=== PATIENT | female | born 1930 | race Hispanic/Latino ===

== ENCOUNTER 2017-11-12 13:15 | Emergency (ER) | payer MEDICARE ==
[2017-11-12 13:15] VITALS: BMI 21.2
--- NOTE | 2017-11-12 13:42 | ED PDOC ---
Syncope/Near Syncope/Dizziness Time Seen by Provider: 11/12/17 13:25 Chief Complaint (Nursing): Weakness/Neurological Deficit History Per: Patient Onset/Duration Of Symptoms: Days (2) Current Symptoms Are (Timing): Intermittent Episodes Associated Symptoms Preceding Syncopal Episode: No Predromal Symptoms (Sudden Onset) Seizure Or Post-ictal Symptoms: None Fall Associated With With Symptoms: No Additional Complaint(s): Lightheadedness x 2 days. Denies dizziness, chest pain or palpitations. No LOC. Denies abd pain nausea or vomiting. Good apatite Past Medical History Vital Signs: Last Vital Signs Temp 98.0 F 11/12/17 13:17 Pulse 79 11/12/17 13:17 Resp 20 11/12/17 13:17 BP 188/101 H 11/12/17 13:17 Pulse Ox 100 11/12/17 13:17 - Medical History PMH: Anemia, Anxiety, Arthritis, CAD, HTN, Hypothyroidism, Osteoporosis, Pulmonary Embolism Denies: Chronic Kidney Disease - Surgical History Surgical History: Appendectomy (8yrs old), Cholecystectomy, Coronary Stent (2006) - Family History Family History: States: Unknown Family Hx - Home Medications Home Medications: Ambulatory Orders Medication Instructions Recorded ALPRAZolam [Xanax] 1 tab PO DAILY PRN 09/30/15 Biotin [Meribin] 1 tab PO DAILY 09/30/15 Cholecalciferol [Vitamin D 1000 IU] 1 tab PO DAILY 09/30/15 Cyanocobalamin (Vitamin B-12) 1 1000 IM Q30D 09/30/15 [Cyanocobalamin Injection] Isosorbide Mononitrate ER [Imdur 1 tab PO DAILY 09/30/15 ER] Montelukast [Singulair] 1 tab PO DAILY PRN 09/30/15 Nitroglycerin [Nitrostat] 1 tab SL PRN PRN 09/30/15 Oxybutynin XL [Ditropan XL] 1 tab PO DAILY 09/30/15 Valsartan [Diovan] 1 tab PO DAILY 09/30/15 Docusate Sodium [Stool Softener] 1 tab PO DAILY 03/27/16 Digoxin [Lanoxin] 0.125 mg PO DAILY 05/15/17 Ferrous Sulfate [Feosol] 325 mg PO BID 05/15/17 Esomeprazole Magnesium [Nexium] 40 mg PO DAILY 08/07/17 Gabapentin [Neurontin] 100 mg PO TID 08/07/17 - Allergies Allergies/Adverse Reactions: Allergies Allergy/AdvReac Type Severity Reaction Status Date / Time Penicillins Allergy SWELLING Verified 11/12/17 13:17 Sulfa (Sulfonamide Allergy SWELLING Verified 11/12/17 13:17 Antibiotics) Review of Systems ROS Statement: Except As Marked, All Systems Reviewed And Found Negative Physical Exam - Reviewed Nursing Documentation Reviewed: Yes Vital Signs Reviewed: Yes - Physical Exam Appears: Positive for: Non-toxic, No Acute Distress Head Exam: Positive for: ATRAUMATIC, NORMAL INSPECTION, NORMOCEPHALIC Skin: Positive for: Normal Color, Warm, DRY Eye Exam: Positive for: EOMI, Normal appearance, PERRL ENT: Positive for: Normal ENT Inspection Neck: Positive for: Normal, Painless ROM Cardiovascular/Chest: Positive for: Regular Rate, Rhythm Respiratory: Positive for: CNT, Normal Breath Sounds Gastrointestinal/Abdominal: Positive for: Normal Exam, Soft Back: Positive for: Normal Inspection Extremity: Positive for: Normal ROM Neurologic/Psych: Positive for: Alert, Oriented - Laboratory Results Result Diagrams: 11/12/17 14:36 11/12/17 14:36 - ECG O2 Sat by Pulse Oximetry: 100 Medical Decision Making Medical Decision Making: Discussed with Dr. Polo Young. Will see pt in office for f/u Disposition - Clinical Impression Clinical Impression: HTN (hypertension), Anxiety - Patient ED Disposition Is Patient to be Admitted: No Counseled Patient/Family Regarding: Studies Performed, Diagnosis, Need For Followup, Rx Given - Disposition Referrals: Brady Young MD [Staff Provider] - Disposition: Routine/Home Disposition Time: 15:35 Condition: FAIR Instructions: High Blood Pressure in Adults, Anxiety, Adult (DC) Forms: [employer]amp (Chilean)
[2017-11-12 14:38] LABS: BASO % 0.3 % (0.0-2.0); EOS % 0.5 % (0.0-4.0); HEMOGLOBIN 12.1 g/dL (12.0-16.0); LYMPH # 0.9 K/uL (1.0-4.3); LYMPH % 10.4 % (20.0-40.0); MEAN CELL VOLUME 89.8 fl (81.0-99.0); MEAN CORPUSCULAR HEMOGLOBIN 30.1 pg (27.0-31.0); MEAN CORPUSCULAR HGB CONC 33.5 g/dL (33.0-37.0); MEAN PLATELET VOLUME 8.3 fl (7.2-11.7); MONO # 0.5 K/uL (0.0-0.8); MONO % 5.3 % (0.0-10.0); NEUT # 7.6 K/uL (1.8-7.0); NEUT % 83.5 % (50.0-75.0); NRBC % 0.1 % (0.0-0.0); RBC 4.04 Mil/uL (3.80-5.20); RED CELL DISTRIBUTION WIDTH 13.1 % (11.5-14.5); WHITE BLOOD COUNT 9.1 K/uL (4.8-10.8)
[2017-11-12 14:54] LABS: ALBUMIN 3.7 g/dL (3.5-5.0); ALT/SGPT 30 U/L (9-52); AST/SGOT 36 U/L (14-36); BLOOD UREA NITROGEN 22 mg/dl (7-17); CALCIUM 8.9 mg/dL (8.4-10.2); GFR AFRICAN-AMERICAN > 60; GFR NON-AFRICAN AMERICAN > 60
[2017-11-12 16:59] VITALS: BP 143/82; PULSE 88; RESP 15; TEMP 98.1; O2SAT 98
--- NOTE | 2017-11-13 13:32 | CARD ---
APPROVED REPORT Date of service: 11/12/2017 EKG Measurement Heart [id number] <Conclusion> Normal sinus rhythm Nonspecific ST abnormality Abnormal ECG
== END 2017-11-12 16:58 | disposition home or self-care (01) ==
LOC: H.ER 13:15
DX: R55 Syncope and collapse (principal); I10 Essential (primary) hypertension; F41.9 Anxiety disorder, unspecified; E03.9 Hypothyroidism, unspecified; Z86.711 Personal history of pulmonary embolism; Z88.0 Allergy status to penicillin; Z95.5 Presence of coronary angioplasty implant and graft

== ENCOUNTER 2017-11-18 12:08 | Emergency (ER) | payer MEDICARE ==
[2017-11-18 12:09] VITALS: BMI 21.2
--- NOTE | 2017-11-18 13:14 | ED PDOC ---
HPI: Hypertension/Hypotension Time Seen by Provider: 11/18/17 12:33 Chief Complaint (Nursing): High Blood Pressure Chief Complaint (Provider): High blood pressure History Per: Patient History/Exam Limitations: no limitations Onset/Duration Of Symptoms: Days Current Symptoms Are (Timing): Still Present Associated Symptoms: denies: Chest Pain, Dyspnea, Blurred Vision, Headache Additional Complaint(s): Dayanara Barahona is an 87 year old female, with a past medical history of HTN, asthma, CAD, gastritis, CHF and anemia, who was brought to the emergency department via EMS for high blood pressure onset today. Patient states she was in the ED x6 days ago for the same problem. Patient reports a lot of stress in her life recently and over the weekend she fell twice after she tripped over a wire. Patient states she was in physical therapy and wasn't feeling right. They examined her blood pressure and noticed it was high so they called the ambulance. Patient is currently taking Oxycodon for chronic pain, and Xanax. She denies any chest pain, shortness of breath or headache. No further medical complaints. PMD: None. Sees Dr. Blake for gastritis Helpdesk Specialist: Dr. Polo Young. Past Medical History Reviewed: Historical Data, Nursing Documentation, Vital Signs Vital Signs: Last Vital Signs Temp 98.8 F 11/18/17 12:17 Pulse 65 11/18/17 12:17 Resp 21 11/18/17 12:17 BP 165/102 H 11/18/17 12:17 Pulse Ox 100 11/18/17 12:17 - Medical History PMH: Anemia, Anxiety, Arthritis, CAD, CHF, Gastritis, HTN, Hypothyroidism, Osteoporosis, Pulmonary Embolism Denies: Chronic Kidney Disease - Surgical History Surgical History: Appendectomy (8yrs old), Cholecystectomy, Coronary Stent (2006) - Family History Family History: States: Unknown Family Hx - Home Medications Home Medications: Ambulatory Orders Medication Instructions Recorded ALPRAZolam [Xanax] 1 tab PO DAILY PRN 09/30/15 Biotin [Meribin] 1 tab PO DAILY 09/30/15 Cholecalciferol [Vitamin D 1000 IU] 1 tab PO DAILY 09/30/15 Cyanocobalamin (Vitamin B-12) 1 1000 IM Q30D 09/30/15 [Cyanocobalamin Injection] Isosorbide Mononitrate ER [Imdur 1 tab PO DAILY 09/30/15 ER] Montelukast [Singulair] 1 tab PO DAILY PRN 09/30/15 Nitroglycerin [Nitrostat] 1 tab SL PRN PRN 09/30/15 Oxybutynin XL [Ditropan XL] 1 tab PO DAILY 09/30/15 Valsartan [Diovan] 1 tab PO DAILY 09/30/15 Docusate Sodium [Stool Softener] 1 tab PO DAILY 03/27/16 Digoxin [Lanoxin] 0.125 mg PO DAILY 05/15/17 Ferrous Sulfate [Feosol] 325 mg PO BID 05/15/17 Esomeprazole Magnesium [Nexium] 40 mg PO DAILY 08/07/17 Gabapentin [Neurontin] 100 mg PO TID 08/07/17 - Allergies Allergies/Adverse Reactions: Allergies Allergy/AdvReac Type Severity Reaction Status Date / Time Penicillins Allergy SWELLING Verified 11/12/17 13:17 Sulfa (Sulfonamide Allergy SWELLING Verified 11/12/17 13:17 Antibiotics) Review of Systems ROS Statement: Except As Marked, All Systems Reviewed And Found Negative Cardiovascular: Positive for: Other (high blood pressure). Negative for: Chest Pain Respiratory: Negative for: Shortness of Breath Neurological: Negative for: Headache Physical Exam - Reviewed Nursing Documentation Reviewed: Yes Vital Signs Reviewed: Yes - Physical Exam Appears: Positive for: Well, No Acute Distress Head Exam: Positive for: ATRAUMATIC, NORMAL INSPECTION, NORMOCEPHALIC Skin: Positive for: Normal Color, Warm, Dry Eye Exam: Positive for: Normal appearance, EOMI, PERRL Neck: Positive for: Painless ROM Cardiovascular/Chest: Positive for: Regular Rate, Rhythm. Negative for: Murmur Respiratory: Positive for: Normal Breath Sounds. Negative for: Respiratory Distress Gastrointestinal/Abdominal: Positive for: Normal Exam, Soft. Negative for: Tenderness Back: Positive for: Normal Inspection Extremity: Positive for: Normal ROM (all extremities). Negative for: Deformity , Swelling Neurologic/Psych: Positive for: Alert, Oriented. Negative for: Motor/Sensory Deficits - Laboratory Results Result Diagrams: 11/18/17 13:50 11/18/17 13:50 - ECG O2 Sat by Pulse Oximetry: 100 (RA) Pulse Ox Interpretation: Normal Medical Decision Making Medical Decision Making: Time: 12:33 Initial Impression: hypertension Initial Plan: --EKG --BNP --BMP --Digoxin --Troponin I --Urine dipstick --CBC w/ differential --Reevaluation 15:42 -Patient reports significant improvement of symptoms. Labs unremarkable. Patient has no complaints at this time and will like to go home. ----- Scribe Attestation: Documented by Michel eRne, acting as a scribe for Elena Carrington MD. Provider Scribe Attestation: All medical record entries made by the Scribe were at my direction and personally dictated by me. I have reviewed the chart and agree that the record accurately reflects my personal performance of the history, physical exam, medical decision making, and the department course for this patient. I have also personally directed, reviewed, and agree with the discharge instructions and disposition. Disposition - Clinical Impression Clinical Impression: HTN (hypertension) - Patient ED Disposition Is Patient to be Admitted: No Doctor Will See Patient In The: Office Counseled Patient/Family Regarding: Studies Performed, Diagnosis, Need For Followup - Disposition Referrals: Henry Young MD [Staff Provider] - Disposition: Routine/Home Disposition Time: 15:44 Condition: GOOD Additional Instructions: Follow up with your PCP in 2-3 days. Return for worsening. Instructions: High Blood Pressure in Adults
[2017-11-18 14:08] VITALS: RESP 19
[2017-11-18 14:09] LABS: BASO % 0.2 % (0.0-2.0); EOS # 0.1 K/uL (0.0-0.7); HEMOGLOBIN 11.8 g/dL (12.0-16.0); LYMPH # 1.4 K/uL (1.0-4.3); LYMPH % 21.2 % (20.0-40.0); MEAN CELL VOLUME 89.6 fl (81.0-99.0); MEAN CORPUSCULAR HGB CONC 33.5 g/dL (33.0-37.0); MEAN PLATELET VOLUME 8.4 fl (7.2-11.7); MONO # 0.4 K/uL (0.0-0.8); MONO % 6.7 % (0.0-10.0); NEUT # 4.5 K/uL (1.8-7.0); NEUT % 70.9 % (50.0-75.0); NRBC % 0.2 % (0.0-0.0); RBC 3.92 Mil/uL (3.80-5.20); WHITE BLOOD COUNT 6.4 K/uL (4.8-10.8)
[2017-11-18 15:04] LABS: B-TYPE NATRIURETIC PEPTIDE 227 pg/ml (0-900); BLOOD UREA NITROGEN 21 mg/dl (7-17); CALCIUM 9.1 mg/dL (8.4-10.2); GFR AFRICAN-AMERICAN > 60; GFR NON-AFRICAN AMERICAN > 60
[2017-11-18 16:07] VITALS: BP 150/80; PULSE 78; TEMP 297.6
--- NOTE | 2017-11-19 09:20 | CARD ---
APPROVED REPORT Date of service: 11/18/2017 EKG Measurement Heart [id number] CT [id number] <Conclusion> Normal sinus rhythm Normal ECG
[2017-11-21 18:17] VITALS: O2SAT 100
== END 2017-11-18 16:08 | disposition home or self-care (01) ==
LOC: H.ER 12:08
DX: I10 Essential (primary) hypertension (principal); I11.0 Hypertensive heart disease with heart failure; M81.0 Age-related osteoporosis without current pathological fracture; G89.29 Other chronic pain; Z88.0 Allergy status to penicillin; Z95.5 Presence of coronary angioplasty implant and graft; Z86.711 Personal history of pulmonary embolism

== ENCOUNTER 2018-02-18 09:25 | Emergency (ER) | payer MEDICARE ==
[2018-02-18 09:25] VITALS: BMI 21.7
[2018-02-18 09:29] VITALS: TEMP 98.8
--- NOTE | 2018-02-18 11:05 | RAD ---
Date of service: 02/18/2018 PROCEDURE: Radiographs of the Right Shoulder HISTORY: shoulder pain injury COMPARISON: No prior. FINDINGS: BONES: Bone alignment is normal. There is no acute displaced fracture or bone destruction. There is diffuse bone demineralization. JOINTS: Normal. Glenohumeral and acromioclavicular joints preserved. No osteoarthritis. SOFT TISSUES: Normal. OTHER FINDINGS: None. IMPRESSION: No acute fracture or dislocation.
--- NOTE | 2018-02-18 11:06 | RAD ---
PROCEDURE: Radiographs of the right humerus. HISTORY: right arm pain injury COMPARISON: None. FINDINGS: BONES: There is diffuse bone demineralization. There is no acute displaced fracture or bone destruction. Bone alignment is normal. SOFT TISSUES: Normal. OTHER FINDINGS: None. IMPRESSION: No acute displaced fracture or dislocation.
--- NOTE | 2018-02-18 11:07 | RAD ---
PROCEDURE: Radiographs of the left humerus. HISTORY: right arm pain injury COMPARISON: None. FINDINGS: BONES: There is diffuse bone demineralization. There is no acute displaced fracture or bone destruction. Bone alignment is normal. SOFT TISSUES: Curvilinear calcification lateral to the humeral head may represent calcific tendinitis in the appropriate clinical setting. OTHER FINDINGS: None. IMPRESSION: No acute displaced fracture or dislocation.
--- NOTE | 2018-02-18 11:09 | ED PDOC ---
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 Patient reports she was cooking meatballs in the kitchen, went up on ladder to puck up a jar, fell backwards and sustained head injury. She states she couldn't hold herself properly and lost balance. Patient complains of injuries and pain to bilateral arms, shoulders and knees. She denies loss of consciousness or syncope. 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 Reed Past Medical History Reviewed: Historical Data, Nursing Documentation, Vital Signs Vital Signs: Last Vital Signs Temp 98.8 F 02/18/18 09:28 Pulse 60 02/18/18 09:28 Resp 18 02/18/18 09:28 BP 172/95 H 02/18/18 09:28 Pulse Ox 99 02/18/18 09:28 - Medical History PMH: Anemia, Anxiety, Arthritis, Back Problems (Chronic), CAD, CHF, Gastritis, HTN, Hypothyroidism, Osteoporosis, Pulmonary Embolism Denies: Chronic Kidney Disease Other PMH: neuropathy - Surgical History Surgical History: Appendectomy (8yrs old), Cholecystectomy, Coronary Stent (05/2006) - Family History Family History: States: Unknown Family Hx - Social History Current smoker - smoking cessation education provided: No Alcohol: None Drugs: Denies - Home Medications Home Medications: Ambulatory Orders Medication Instructions Recorded ALPRAZolam [Xanax] 1 tab PO DAILY PRN 09/30/15 Biotin [Meribin] 1 tab PO DAILY 09/30/15 Cholecalciferol [Vitamin D 1000 IU] 1 tab PO DAILY 09/30/15 Cyanocobalamin (Vitamin B-12) 1 1000 IM Q30D 09/30/15 [Cyanocobalamin Injection] Isosorbide Mononitrate ER [Imdur 1 tab PO DAILY 09/30/15 ER] Montelukast [Singulair] 1 tab PO DAILY PRN 09/30/15 Nitroglycerin [Nitrostat] 1 tab SL PRN PRN 09/30/15 Oxybutynin XL [Ditropan XL] 1 tab PO DAILY 09/30/15 Valsartan [Diovan] 1 tab PO DAILY 09/30/15 Docusate Sodium [Stool Softener] 1 tab PO DAILY 03/27/16 Digoxin [Lanoxin] 0.125 mg PO DAILY 05/15/17 Ferrous Sulfate [Feosol] 325 mg PO BID 05/15/17 Esomeprazole Magnesium [Nexium] 40 mg PO DAILY 08/07/17 Gabapentin [Neurontin] 100 mg PO TID 08/07/17 - Allergies Allergies/Adverse Reactions: Allergies Allergy/AdvReac Type Severity Reaction Status Date / Time Penicillins Allergy SWELLING Verified 02/18/18 09:47 Sulfa (Sulfonamide Allergy SWELLING Verified 02/18/18 09:47 Antibiotics) Review of Systems ROS Statement: Except As Marked, All Systems Reviewed And Found Negative Musculoskeletal: Positive for: Shoulder Pain (bilateral), Arm Pain (bilateral), Leg Pain (bilateral knee pain) Neurological: Negative for: Other (LOC or syncope) Physical Exam - Reviewed Nursing Documentation Reviewed: Yes Vital Signs Reviewed: Yes - Physical Exam Appears: Positive for: Non-toxic, No Acute Distress Head Exam: Positive for: ATRAUMATIC, NORMOCEPHALIC Skin: Positive for: Normal Color, Warm, Dry Eye Exam: Positive for: Normal appearance, EOMI, PERRL ENT: Positive for: Normal ENT Inspection Neck: Positive for: Normal, Painless ROM, Supple Cardiovascular/Chest: Positive for: Regular Rate, Rhythm. Negative for: Murmur Respiratory: Positive for: Normal Breath Sounds. Negative for: Wheezing Gastrointestinal/Abdominal: Positive for: Normal Exam, Soft. Negative for: Tenderness Back: Positive for: Normal Inspection. Negative for: L CVA Tenderness, R CVA Tenderness Extremity: Positive for: Normal ROM, Other (Ecchymosis to right and left upper arm and to left forearm.). Negative for: Deformity (of knees, arms and shoulders), Swelling (or redness of knees, arms and shoulders) Neurologic/Psych: Positive for: Alert, Oriented (x3) - ECG O2 Sat by Pulse Oximetry: 99 (RA) Pulse Ox Interpretation: Normal Medical Decision Making Medical Decision Making: Time: 1006 Initial Impression: Head injury and bilateral arm injury. Initial Plan: --Ct Head W/O Contrast --Left humerus x-ray --Right humerus x-ray --Right shoulder x-ray 1102 Right shoulder x-ray FINDINGS: BONES: Bone alignment is normal. There is no acute displaced fracture or bone destruction. There is diffuse bone demineralization. JOINTS: Normal. Glenohumeral and acromioclavicular joints preserved. No osteoarthritis. SOFT TISSUES: Normal. OTHER FINDINGS: None. IMPRESSION: No acute fracture or dislocation. Right humerus x-ray FINDINGS: BONES: There is diffuse bone demineralization. There is no acute displaced fracture or bone destruction. Bone alignment is normal. SOFT TISSUES: Normal. OTHER FINDINGS: None. IMPRESSION: No acute displaced fracture or dislocation. 1103 Left humerus x-ray FINDINGS: BONES: There is diffuse bone demineralization. There is no acute displaced fracture or bone destruction. Bone alignment is normal. SOFT TISSUES: Curvilinear calcification lateral to the humeral head may represent calcific tendinitis in the appropriate clinical setting. OTHER FINDINGS: None. IMPRESSION: No acute displaced fracture or dislocation. 1120 CT Head FINDINGS: HEMORRHAGE: No intracranial hemorrhage. BRAIN: No mass effect or edema. Atrophy. Chronic microvascular ischemic changes. VENTRICLES: Unremarkable. No hydrocephalus. CALVARIUM: Unremarkable. PARANASAL SINUSES: Unremarkable as visualized. No significant inflammatory changes. MASTOID AIR CELLS: Unremarkable as visualized. No inflammatory changes. OTHER FINDINGS: None. IMPRESSION: No acute intracranial pathology. Age-related changes. No significant interval change. Scribe Attestation: Documented by Skye Chaudhary, acting as a scribe for Elena Carrington MD. Provider Scribe Attestation: All medical record entries made by the Scribe were at my direction and personally dictated by me. I have reviewed the chart and agree that the record accurately reflects my personal performance of the history, physical exam, medical decision making, and the department course for this patient. I have also personally directed, reviewed, and agree with the discharge instructions and disposition. Disposition - Clinical Impression Clinical Impression: Head injury, Contusion - Patient ED Disposition Is Patient to be Admitted: No Doctor Will See Patient In The: Office Counseled Patient/Family Regarding: Studies Performed, Diagnosis, Need For Followup - Disposition Disposition: Routine/Home Disposition Time: 12:33 Condition: GOOD Additional Instructions: MISSY FAITH, thank you for letting us take care of you today. Your provider was Elena Carrington MD and you were treated for FALL. The emergency medical care you received today was directed at your acute symptoms. If you were prescribed any medication, please fill it and take as directed. It may take several days for your symptoms to resolve. Return to the Emergency Department if your symptoms worsen, do not improve, or if you have any other problems. Please contact your doctor or call one of the physicians/clinics you have been referred to that are listed on the Patient Visit Information form that is included in your discharge packet. Bring any paperwork you were given at discharge with you along with any medications you are taking to your follow up visit. Our treatment cannot replace ongoing medical care by a primary care provider outside of the emergency department. Thank you for allowing the [facility] team to be part of your care today. If you had an X-Ray or CT scan: A Radiologist will review the ED reading if any change in treatment is needed we will contact you. If you had a blood, urine, or wound culture: It will take several days for the results, if any change in treatment is needed we will contact you. If you had an STI test: It will take 48 hours for the results. Please call after 1 week if you have not heard back. Instructions: Closed Head Injury (DC), Contusion (DC)
--- NOTE | 2018-02-18 11:23 | CT ---
Date of service: 02/18/2018 PROCEDURE: CT HEAD WITHOUT CONTRAST. HISTORY: head injury COMPARISON: CT head dated 11/16/2012 TECHNIQUE: Axial computed tomography images were obtained through the head/brain without intravenous contrast. Radiation dose: Total exam DLP = 777.6 mGy-cm. This CT exam was performed using one or more of the following dose reduction techniques: Automated exposure control, adjustment of the mA and/or kV according to patient size, and/or use of iterative reconstruction technique. FINDINGS: HEMORRHAGE: No intracranial hemorrhage. BRAIN: No mass effect or edema. Atrophy. Chronic microvascular ischemic changes. VENTRICLES: Unremarkable. No hydrocephalus. CALVARIUM: Unremarkable. PARANASAL SINUSES: Unremarkable as visualized. No significant inflammatory changes. MASTOID AIR CELLS: Unremarkable as visualized. No inflammatory changes. OTHER FINDINGS: None. IMPRESSION: No acute intracranial pathology. Age-related changes. No significant interval change.
[2018-02-18 12:39] VITALS: BP 168/88; PULSE 74; RESP 19; O2SAT 98
== END 2018-02-18 12:41 | disposition home or self-care (01) ==
LOC: H.ER 09:25
DX: S09.90XA Unspecified injury of head, initial encounter (principal); S49.91XA Unspecified injury of right shoulder and upper arm, initial encounter; S40.022A Contusion of left upper arm, initial encounter; W19.XXXA Unspecified fall, initial encounter; Y92.000 Kitchen of unspecified non-institutional (private) residence as the place of occurrence of the external cause; I11.0 Hypertensive heart disease with heart failure; Z86.711 Personal history of pulmonary embolism; Z95.5 Presence of coronary angioplasty implant and graft; I25.10 Atherosclerotic heart disease of native coronary artery without angina pectoris